=== PATIENT | male | born 1945 | race Two or more races ===

== ENCOUNTER 2020-03-23 18:13 | Inpatient (IN) | payer MEDICARE, MEDICAID ==
[~2020-03-23] VITALS: Ht 165.1 cm; Wt 75.0 kg
[2020-03-23 19:13] LABS: CHLORIDE 102 mEq/L (98-107)
[2020-03-23 19:17] LABS: BASOPHILS % 0.5 % (0.0-2.0); EOSINOPHILS % 0.7 % (0.0-5.0); HEMATOCRIT. 25.3 % (42.0-52.0); HEMOGLOBIN. 8.6 g/dL (14.0-18.0); LYMPHOCYTES % 11.6 % (20.0-50.0); MEAN CORPUSCULAR HEMOGLOBIN 31.2 pg (28.0-32.0); MEAN CORPUSCULAR VOLUME 91.3 fL (80.0-94.0); MONOCYTES % 8.4 % (2.0-8.0); NEUTROPHILS % 78.8 % (40.0-76.0); PLATELET 147 x1000/uL (130-400); RED BLOOD CELL COUNT 2.77 mill/uL (4.7-6.1); RED CELL DISTRIBUTION WIDTH 14.1 % (11.6-14.6)
[2020-03-23 19:39] LABS: INR 1.1; PROTHROMBIN TIME 11.4 sec (9.6-11.0)
[2020-03-23] MEDS ORDERED: HEPARIN 5000 UNITS/ML VIAL IV PRN ×2 (20:00)
[2020-03-23] MEDS ORDERED: HEPARIN 25,000 UNITS PREMIX 250 ML IV PRN (21:00)
[2020-03-23] MEDS ORDERED: HEPARIN 5000 UNITS/ML VIAL IV SCH (21:00)
[2020-03-23 23:00] VITALS: BP 136/60
[2020-03-24] VITALS (8 sets, daily range): BP systolic 100–167; BP diastolic 54–72
[2020-03-24] MEDS ORDERED: LORAZEPAM 2MG/ML CPJ IV PRN ×2 (00:30→16:30)
[2020-03-24] MEDS ORDERED: DEXTROSE 50% WATER 50ML SYRINGE IV PRN (00:30)
[2020-03-24] MEDS ORDERED: HEPARIN 25,000 UNITS PREMIX 250 ML IV SCH (01:15)
[2020-03-24] MEDS ORDERED: HEPARIN BOLUS PRN aPTT <30 IV (02:00)
[2020-03-24] MEDS ORDERED: HEPARIN 60 UNITS/KG BOLUS IV SCH (02:00)
[2020-03-24] MEDS: HEPARIN 25,000 UNITS PREMIX 250 ML IV SCH ×2 (02:39→20:46)
[2020-03-24] MEDS: ACETAMINOPHEN 325MG TABLET PO PRN (05:40)
[2020-03-24] MEDS: BLOOD SUGAR DIAGNOSTIC STRIP TEST SCH ×4 (06:38→20:27)
[2020-03-24] MEDS: NITROGLYCERIN OINT 1GM/INCH UDPKT TD SCH ×2 (06:44→14:06)
[2020-03-24] MEDS: INSULIN LISPRO 100 UNITS/ML SUBCUT SCH ×4 (06:47→20:27)
[2020-03-24] MEDS ORDERED: PIPERACILLIN/TAZOBACTAM 3.375 G in DEXT 5% WATER 100 ML IV SCH (09:00)
[2020-03-24] MEDS: METOPROLOL TARTRATE 50MG TABLET PO SCH ×2 (09:00→20:26)
[2020-03-24] MEDS: ASPIRIN 325MG EC TABLET PO SCH (09:13)
[2020-03-24] MEDS ORDERED: INSULIN GLARGINE UD 100 UNITS/ML SYR SUBCUT SCH ×2 (10:00)
[2020-03-24] MEDS ORDERED: CLONIDINE 0.1MG TABLET PO PRN (10:15)
[2020-03-24] MEDS: LOSARTAN POTASSIUM 25 MG TABLET PO SCH (10:15)
[2020-03-24] MEDS ORDERED: VANCOMYCIN 1250MG in DEXTROSE 5% WATER 250ML IV SCH (11:00)
[2020-03-24] MEDS: PIPERACILLIN/TAZOBACTAM 2.25 G in DEXTROSE 5% WATER 50 ML IV SCH (11:53)
[2020-03-24 12:02] LABS: HEMATOCRIT 24.9 % (42.0-52.0); HEMOGLOBIN 8.4 g/dL (14.0-18.0); MEAN CORPUSCULAR HEMOGLOBIN 30.8 pg (28.0-32.0); MEAN CORPUSCULAR VOLUME 91.3 fL (80.0-94.0); PLATELET 132 x1000/uL (130-400); RED BLOOD CELL COUNT 2.73 mill/uL (4.7-6.1)
[2020-03-24] MEDS ORDERED: DIPHENHYDRAMINE 50MG/ML VIAL IV PRN (12:45)
[2020-03-24] MEDS ORDERED: ONDANSETRON HCL 4MG/2ML INJ IV PRN (12:45)
[2020-03-24] MEDS ORDERED: ALBUTEROL 6.7GM HFA INHALER ORI PRN (12:45)
[2020-03-24 14:01] LABS: BG BASE EXCESS 4.2 mmol/L (-2.0-2.0); BG CARBOXYHEMOGLOBIN 0.2 % (0.5-1.5); BG DEOXYHEMOGLOBIN 2.8 % (0.0-5.0); BG FRACTION INSPIRED OXYGEN 21; BG HCO3 ACT 28.7 mmol/L (22.0-26.0); BG METHEMOGLOBIN 0.1 % (0.0-1.5); BG OXYGEN SATURATION 97.2 % (92.0-98.5); BG OXYHEMOGLOBIN 96.9 % (94.0-97.0); BG PCO2 43.4 mmHg (35.0-45.0); BG PH 7.439 (7.350-7.450); BG PO2 93.6 mmHg (75.0-100.0); BG SAMPLE SITE RIGHT BRACHIAL; BG TOTAL HEMOGLOBIN 8.9 g/dL (12.0-18.0); BG VENT MODE ROOM AIR
[2020-03-24] MEDS ORDERED: ISOS30TA6 PO (16:19)
[2020-03-24] MEDS ORDERED: CALC0.002 PO (16:19)
[2020-03-24] MEDS ORDERED: CARV25TA47 PO (16:19)
[2020-03-24] MEDS ORDERED: ATOR-2 PO (16:19)
[2020-03-24] MEDS ORDERED: CLOP75TA33 PO (16:19)
[2020-03-24] MEDS ORDERED: FURO40TA5 PO (16:19)
[2020-03-24] MEDS ORDERED: HYDR-4134 PO (16:19)
[2020-03-24] MEDS ORDERED: ASPI-1158 PO (16:19)
[2020-03-24 19:45] LABS: CLARITY URINE CLOUDY (CLEAR); COLOR URINE YELLOW (YELLOW); KETONES URINE NEGATIVE (NEGATIVE); LEUKOCYTE ESTERASE URINE 2+ (NEGATIVE); NITRITE URINE NEGATIVE (NEGATIVE); OCCULT BLOOD URINE 1+ (NEGATIVE); PH URINE 6.5 (4.5-8.0); PROTEIN URINE 3+ (NEGATIVE); SPECIFIC GRAVITY URINE 1.016 (1.005-1.030)
[2020-03-24 20:13] LABS: *AMPHETAMINES SCREEN URINE NEGATIVE (NEGATIVE); *BARBITURATES SCREEN URINE NEGATIVE (NEGATIVE); *BENZODIAZEPINES SCREEN URINE NEGATIVE (NEGATIVE); *COCAINE SCREEN URINE NEGATIVE (NEGATIVE); METHADONE URINE SCREEN NEGATIVE (NEGATIVE); OPIATES URINE SCREEN NEGATIVE (NEGATIVE)
[2020-03-24 20:14] LABS: CANNABINOID URINE SCREEN NEGATIVE (NEGATIVE); PHENCYCLIDINE URINE SCREEN NEGATIVE (NEGATIVE)
[2020-03-24] MEDS: FAMOTIDINE 20MG TABLET PO SCH (20:26)
[2020-03-24] MEDS: ATORVASTATIN CALCIUM 40MG TABLET PO SCH (20:27)
[2020-03-24] MEDS: EPOETIN ALFA-EPBX 4,000 UNIT/ML VIAL SUBCUT SCH (20:28)
[2020-03-24] MEDS: HEPARIN BOLUS PRN aPTT 30-44 IV (20:30)
[2020-03-25] MEDS: PIPERACILLIN/TAZOBACTAM 2.25 G in DEXTROSE 5% WATER 50 ML IV SCH ×3 (02:15→23:39)
[2020-03-25] MEDS: NITROGLYCERIN OINT 1GM/INCH UDPKT TD SCH ×4 (02:15→21:19)
[2020-03-25 02:55] LABS: CHLORIDE 103 mEq/L (98-107)
[2020-03-25 03:02] LABS: LDL CHOLESTEROL 63 mg/dL (5-100)
[2020-03-25 03:03] LABS: HDL CHOLESTEROL 39 mg/dL (40-59); TOTAL IRON BINDING CAPACITY 174 ug/dL (250-450)
[2020-03-25 03:05] LABS: CREATINE KINASE 190 IU/L (39-308); CREATINE KINASE MB FRACTION 6.5 ng/mL (0.5-3.6)
[2020-03-25 03:07] LABS: BASOPHILS % 0.7 % (0.0-2.0); EOSINOPHILS % 1.5 % (0.0-5.0); HEMATOCRIT. 23.6 % (42.0-52.0); LYMPHOCYTES % 16.9 % (20.0-50.0); MEAN CORPUSCULAR HEMOGLOBIN 30.7 pg (28.0-32.0); MEAN CORPUSCULAR VOLUME 90.4 fL (80.0-94.0); MEAN PLATELET VOLUME 10.3 fl (7.4-10.4); MONOCYTES % 9.9 % (2.0-8.0); PLATELET 130 x1000/uL (130-400); RED BLOOD CELL COUNT 2.61 mill/uL (4.7-6.1); RED CELL DISTRIBUTION WIDTH 13.9 % (11.6-14.6)
[2020-03-25 04:00] VITALS: BP 128/66
[2020-03-25 04:01] LABS: HEPATITIS B SURFACE ANTIGEN NEGATIVE
[2020-03-25 04:31] LABS: HEPATITIS A AB IGM NEGATIVE (NEGATIVE)
[2020-03-25] MEDS: BLOOD SUGAR DIAGNOSTIC STRIP TEST SCH ×4 (06:33→21:30)
[2020-03-25] MEDS: INSULIN LISPRO 100 UNITS/ML SUBCUT SCH ×4 (06:45→21:00)
[2020-03-25 08:00] VITALS: BP 142/65
[2020-03-25] MEDS: ASPIRIN 325MG EC TABLET PO SCH (08:52)
[2020-03-25] MEDS: LOSARTAN POTASSIUM 25 MG TABLET PO SCH (08:53)
[2020-03-25] MEDS: METOPROLOL TARTRATE 50MG TABLET PO SCH ×2 (08:53→21:20)
[2020-03-25] MEDS ORDERED: ALBUTEROL (0.083%) 2.5MG/3ML NEB HHN PRN (10:45)
[2020-03-25 12:00] VITALS: BP 128/74
[2020-03-25] MEDS: CLOPIDOGREL 75MG TABLET PO SCH (12:02)
[2020-03-25] MEDS ORDERED: VANCOMYCIN 1 G PREMIX 200 ML IV NR (15:00)
[2020-03-25 16:00] VITALS: BP 128/59
[2020-03-25] MEDS: HEPARIN BOLUS PRN aPTT 30-44 IV (19:45)
[2020-03-25 20:00] VITALS: BP 135/71
[2020-03-25] MEDS: FAMOTIDINE 20MG TABLET PO SCH (21:19)
[2020-03-25] MEDS: ATORVASTATIN CALCIUM 40MG TABLET PO SCH (21:19)
[2020-03-25 21:22] LABS: HEMATOCRIT 23.7 % (42.0-52.0); HEMOGLOBIN 8.1 g/dL (14.0-18.0)
[2020-03-26] VITALS (21 sets, daily range): BP systolic 123–152; BP diastolic 64–85
[2020-03-26 02:30] LABS: CHLORIDE 104 mEq/L (98-107)
[2020-03-26 02:32] LABS: EOSINOPHILS % 5.2 % (0.0-5.0); HEMATOCRIT. 23.4 % (42.0-52.0); HEMOGLOBIN. 7.9 g/dL (14.0-18.0); LYMPHOCYTES % 24.2 % (20.0-50.0); MEAN CORPUSCULAR HEMOGLOBIN 30.7 pg (28.0-32.0); MEAN CORPUSCULAR VOLUME 90.2 fL (80.0-94.0); MEAN PLATELET VOLUME 9.8 fl (7.4-10.4); MONOCYTES % 14.5 % (2.0-8.0); NEUTROPHILS % 55.1 % (40.0-76.0); PLATELET 130 x1000/uL (130-400); RED BLOOD CELL COUNT 2.59 mill/uL (4.7-6.1); RED CELL DISTRIBUTION WIDTH 14.1 % (11.6-14.6)
[2020-03-26] MEDS: INSULIN LISPRO 100 UNITS/ML SUBCUT SCH ×4 (06:29→21:00)
[2020-03-26] MEDS: BLOOD SUGAR DIAGNOSTIC STRIP TEST SCH ×4 (06:29→21:40)
[2020-03-26] MEDS: NITROGLYCERIN OINT 1GM/INCH UDPKT TD SCH ×3 (06:29→21:40)
[2020-03-26 09:30] LABS: HEMATOCRIT. 24.4 % (42.0-52.0); HEMOGLOBIN. 8.3 g/dL (14.0-18.0); MEAN CORPUSCULAR HEMOGLOBIN 30.8 pg (28.0-32.0); MEAN CORPUSCULAR VOLUME 90.9 fL (80.0-94.0); MEAN PLATELET VOLUME 9.7 fl (7.4-10.4); PLATELET 146 x1000/uL (130-400); RED BLOOD CELL COUNT 2.69 mill/uL (4.7-6.1)
[2020-03-26] MEDS: CLOPIDOGREL 75MG TABLET PO SCH (09:42)
[2020-03-26] MEDS: LOSARTAN POTASSIUM 25 MG TABLET PO SCH (09:42)
[2020-03-26] MEDS: METOPROLOL TARTRATE 50MG TABLET PO SCH (09:42)
[2020-03-26] MEDS: ASPIRIN 81MG EC TABLET PO SCH ×2 (09:43→17:27)
[2020-03-26] MEDS ORDERED: MIDAZOLAM HCL 2 MG/2 ML VIAL ONE (11:36)
[2020-03-26] MEDS ORDERED: IODIXANOL 320MG/ML 100 ML BOTTLE IV ONE (11:37)
[2020-03-26] MEDS ORDERED: FENTANYL CITRATE/PF 50MCG/ML 2ML VIAL ONE (11:37)
[2020-03-26] MEDS ORDERED: LIDOCAINE HCL 1% 20ML VIAL (Pyxis) INJ ONE (11:37)
[2020-03-26] MEDS ORDERED: HEPARIN SODIUM 1,000 UNIT/1ML VIAL IV ONE (12:00)
[2020-03-26] MEDS ORDERED: ASPIRIN/SOD BICARB/CITRIC ACID 324MG TAB EFF ONE (12:01)
[2020-03-26] MEDS ORDERED: ATROPINE SULFATE 0.1MG/ML 10ML DISP.SYRIN ONE (12:22)
[2020-03-26] MEDS ORDERED: ONDANSETRON HCL 4MG/2ML INJ IV PRN (12:45)
[2020-03-26] MEDS ORDERED: ACETAMINOPHEN 325MG TABLET PO PRN ×2 (12:45→13:00)
[2020-03-26] MEDS ORDERED: ATROPINE SULFATE 1MG/10ML SYR IV PRN (12:45)
[2020-03-26] MEDS ORDERED: MORPHINE SULFATE 2 MG/ML CPJ (NOT FOR IM USE) IV PRN (12:45)
[2020-03-26] MEDS ORDERED: EPOETIN ALFA 10000UNITS/ML VIAL SUBCUT ONE (13:00)
[2020-03-26] MEDS ORDERED: EPOETIN ALFA 10000UNITS/ML VIAL SUBCUT SCH (14:00)
[2020-03-26 14:42] LABS: PLATELET ESTIMATE NORMAL
[2020-03-26] MEDS: PIPERACILLIN/TAZOBACTAM 2.25 G in DEXTROSE 5% WATER 50 ML IV SCH (14:55)
[2020-03-26] MEDS ORDERED: LEVOFLOXACIN 500MG PREMIX 100 ML IV NR (18:00)
[2020-03-26 18:53] LABS: CLARITY URINE CLEAR (CLEAR); COLOR URINE YELLOW (YELLOW); KETONES URINE NEGATIVE (NEGATIVE); LEUKOCYTE ESTERASE URINE NEGATIVE (NEGATIVE); NITRITE URINE NEGATIVE (NEGATIVE); OCCULT BLOOD URINE NEGATIVE (NEGATIVE); PH URINE 7.5 (4.5-8.0); PROTEIN URINE 2+ (NEGATIVE); SPECIFIC GRAVITY URINE 1.017 (1.005-1.030); UROBILINOGEN URINE 0.2 E.U./dL (0.2-1.0)
[2020-03-26] MEDS ORDERED: CHLORHEXIDINE GLUCONATE 4% EXTERNAL USE TOP SCH (21:00)
[2020-03-26] MEDS: METOPROLOL TARTRATE 25MG TABLET PO SCH (21:00)
[2020-03-26] MEDS ORDERED: ASCORBIC ACID 500 MG TABLET PO SCH (21:00)
[2020-03-26] MEDS ORDERED: BISACODYL 10MG SUPP PR PRN (21:00)
[2020-03-26] MEDS ORDERED: DOCUSATE SODIUM 100MG CAPSULE PO SCH (21:00)
[2020-03-26] MEDS ORDERED: DIPHENHYDRAMINE 25MG CAPSULE PO PRN (21:00)
[2020-03-26] MEDS: ATORVASTATIN CALCIUM 40MG TABLET PO SCH (21:36)
[2020-03-26] MEDS: FAMOTIDINE 20MG TABLET PO SCH (21:37)
[2020-03-26] MEDS: ALLOPURINOL 300 MG TABLET PO SCH (21:37)
[2020-03-27] VITALS (44 sets, daily range): BP systolic 0–180; BP diastolic 0–98
[2020-03-27] MEDS: ALLOPURINOL 300 MG TABLET PO SCH (04:35)
[2020-03-27] MEDS: IPRATROPIUM/ALBUTEROL 0.5-3(2.5)MG/3ML NEB HHN SCH ×2 (04:38→23:50)
[2020-03-27] MEDS ORDERED: CHLORHEXIDINE GLUCONATE 4% EXTERNAL USE TOP SCH (05:00)
[2020-03-27] MEDS: BLOOD SUGAR DIAGNOSTIC STRIP TEST SCH ×9 (06:01→23:47)
[2020-03-27] MEDS: INSULIN LISPRO 100 UNITS/ML SUBCUT SCH (06:01)
[2020-03-27 06:04] LABS: HEMATOCRIT. 37.9 % (42.0-52.0); HEMOGLOBIN. 12.9 g/dL (14.0-18.0); MEAN CORPUSCULAR HEMOGLOBIN 29.8 pg (28.0-32.0); MEAN CORPUSCULAR VOLUME 87.5 fL (80.0-94.0); MEAN PLATELET VOLUME 9.4 fl (7.4-10.4); PLATELET 147 x1000/uL (130-400); RED BLOOD CELL COUNT 4.33 mill/uL (4.7-6.1); RED CELL DISTRIBUTION WIDTH 14.4 % (11.6-14.6)
[2020-03-27] MEDS: NITROGLYCERIN OINT 1GM/INCH UDPKT TD SCH (06:07)
[2020-03-27] MEDS ORDERED: THROMBIN (BOVINE) 5000 UNITS/VIAL TOP ONE (07:21)
[2020-03-27] MEDS ORDERED: SODIUM CHLORIDE 0.9% INJ 10ML FLUSH ONE (07:21)
[2020-03-27] MEDS ORDERED: BACITRACIN 50,000 UNITS/VIAL ONE (07:22)
[2020-03-27] MEDS ORDERED: SODIUM CHLORIDE 0.9% IRRIG SOL 8,000 ML IR ONE (07:22)
[2020-03-27] MEDS ORDERED: SODIUM CHLORIDE 0.9% 4,000 ML ONE (07:22)
[2020-03-27 07:36] LABS: PLATELET ESTIMATE NORMAL
[2020-03-27] MEDS ORDERED: NOREPINEPHRINE 8 MG in DEXT 5% WATER 242 ML IV ONE (08:00)
[2020-03-27] MEDS ORDERED: INSULIN REGULAR (DRIP) 100 UNITS in SODIUM CHLORIDE 0.9% 99 ML IV ONE (08:00)
[2020-03-27] MEDS ORDERED: EPINEPHRINE 5 MG in SODIUM CHLORIDE 0.9% 250 ML IV PRN (08:00)
[2020-03-27] MEDS: ASPIRIN 81MG EC TABLET PO SCH ×2 (08:14→16:50)
[2020-03-27] MEDS: METOPROLOL TARTRATE 25MG TABLET PO SCH ×2 (08:14→21:00)
[2020-03-27] MEDS ORDERED: PAPAVERINE HCL 180MG in SODIUM CHLORIDE 0.9% 24ML IV ONE (08:15)
[2020-03-27] MEDS ORDERED: DEL NIDO ELECTROLYTE-S(PH 7.4) 1,000 ML IV ONE ×2 (08:15)
[2020-03-27] MEDS ORDERED: CEFAZOLIN 2000MG in DEXTROSE 5% WATER 100ML IV SCH (09:00)
[2020-03-27] MEDS ORDERED: SKIN ADHESIVE 0.7 GM EA TOP ONE ×2 (09:57→15:02)
[2020-03-27] MEDS ORDERED: POTASSIUM CHLORIDE 10MEQ IN WATER 50ML PREMIX IV ONE (10:00)
[2020-03-27] MEDS ORDERED: DOPAMINE 400MG/250ML PREMIX 250 ML IV ONE (10:06)
[2020-03-27] MEDS ORDERED: NICARDIPINE 40MG/200ML PREMIX 200 ML IV ONE (10:06)
[2020-03-27] MEDS ORDERED: HEPARIN 1000 UNITS/ML 10ML ONE (10:53)
[2020-03-27] MEDS ORDERED: HEPARIN 10,000 UNITS/ML VIAL ONE (11:00)
[2020-03-27] MEDS ORDERED: MAGNESIUM 2 G PREMIX 100 ML IV ONE (14:53)
[2020-03-27] MEDS ORDERED: MAGNESIUM SULFATE 3 GM in DEXT 5% WATER 100 ML IV PRN (15:00)
[2020-03-27] MEDS ORDERED: ACETAMINOPHEN 325MG TABLET PO PRN (15:00)
[2020-03-27] MEDS ORDERED: MAGNESIUM 1 G PREMIX 100 ML IV PRN (15:00)
[2020-03-27] MEDS ORDERED: MAGNESIUM 2 G PREMIX 50 ML IV PRN (15:00)
[2020-03-27] MEDS ORDERED: CALCIUM CHLORIDE 3,000 MG in DEXT 5% WATER 250 ML IV PRN (15:00)
[2020-03-27] MEDS ORDERED: OXYCODONE HCL/ACETAMINOPHEN 5/325MG TABLET PO PRN ×2 (15:00)
[2020-03-27] MEDS ORDERED: KETOROLAC 30MG/ML VIAL IV PRN (15:00)
[2020-03-27] MEDS ORDERED: DEXTROSE 50% WATER 50ML SYRINGE IV PRN ×2 (15:15)
[2020-03-27] MEDS ORDERED: KCL 10MEQ/50ML PREMIX 200 ML IV PRN (15:15)
[2020-03-27] MEDS ORDERED: KCL 10MEQ/50ML PREMIX 100 ML IV PRN (15:15)
[2020-03-27] MEDS ORDERED: KCL 10MEQ/50ML PREMIX 150 ML IV PRN (15:15)
[2020-03-27 15:55] LABS: BG BASE EXCESS -4.2 mmol/L (-2.0-2.0); BG CARBOXYHEMOGLOBIN 0.4 % (0.5-1.5); BG DEOXYHEMOGLOBIN 0.8 % (0.0-5.0); BG FRACTION INSPIRED OXYGEN 99.8; BG HCO3 ACT 22.4 mmol/L (22.0-26.0); BG METHEMOGLOBIN 0.3 % (0.0-1.5); BG OXYGEN SATURATION 99.2 % (92.0-98.5); BG OXYHEMOGLOBIN 98.5 % (94.0-97.0); BG PCO2 47.1 mmHg (35.0-45.0); BG PH 7.295 (7.350-7.450); BG PO2 200.8 mmHg (75.0-100.0); BG SAMPLE SITE ALINE; BG TOTAL HEMOGLOBIN 13.3 g/dL (12.0-18.0); BG VENT MODE MASK - NRB
[2020-03-27] MEDS: MAGNESIUM HYDROXIDE 400MG/5ML 30ML UDC PO SCH ×3 (16:00→23:09)
[2020-03-27] MEDS ORDERED: INSULIN REGULAR (DRIP) 100 UNITS in SODIUM CHLORIDE 0.9% 100 ML IV SCH (16:00)
[2020-03-27 16:12] LABS: BASOPHILS % 0.7 % (0.0-2.0); EOSINOPHILS % 0.8 % (0.0-5.0); HEMATOCRIT. 36.9 % (42.0-52.0); HEMOGLOBIN. 12.3 g/dL (14.0-18.0); LYMPHOCYTES % 11.4 % (20.0-50.0); MEAN CORPUSCULAR HEMOGLOBIN 29.5 pg (28.0-32.0); MEAN CORPUSCULAR VOLUME 88.2 fL (80.0-94.0); MEAN PLATELET VOLUME 9.6 fl (7.4-10.4); MONOCYTES % 2.5 % (2.0-8.0); NEUTROPHILS % 84.6 % (40.0-76.0); PLATELET 184 x1000/uL (130-400); RED BLOOD CELL COUNT 4.18 mill/uL (4.7-6.1); RED CELL DISTRIBUTION WIDTH 14.8 % (11.6-14.6)
[2020-03-27] MEDS: BACITRACIN 15GM TUBE TOP SCH (16:50)
[2020-03-27] MEDS: DOCUSATE SODIUM 100MG CAPSULE PO SCH (16:50)
[2020-03-27] MEDS: FAMOTIDINE 20MG/2ML VIAL IV SCH (16:55)
[2020-03-27] MEDS ORDERED: DEXT 5%/0.45% NACL 1000ML 1,000 ML IV SCH ×2 (17:00)
[2020-03-27] MEDS: DEXT 5%/0.45% NACL 1000ML 1,000 ML IV SCH (17:10)
[2020-03-27] MEDS ORDERED: ALBUMIN HUMAN 25GM/100ML (25%) IV NR (18:00)
[2020-03-27] MEDS: EPINEPHRINE 5 MG in DEXT 5% WATER 245 ML IV SCH ×3 (18:10→23:41)
[2020-03-27] MEDS: DOPAMINE 400MG/250ML PREMIX 250 ML IV SCH ×2 (18:21→23:41)
[2020-03-27] MEDS ORDERED: PROTAMINE SULFATE 10MG/ML VIAL 5ML IV NR (19:00)
[2020-03-27] MEDS ORDERED: PROTAMINE SULFATE 10MG/ML VIAL 25ML IV NR (19:00)
[2020-03-27 20:21] LABS: HEMATOCRIT. 27.1 % (42.0-52.0); HEMOGLOBIN. 9.2 g/dL (14.0-18.0); MEAN CORPUSCULAR VOLUME 88.1 fL (80.0-94.0); MEAN PLATELET VOLUME 9.3 fl (7.4-10.4); PLATELET 147 x1000/uL (130-400); RED BLOOD CELL COUNT 3.08 mill/uL (4.7-6.1); RED CELL DISTRIBUTION WIDTH 14.6 % (11.6-14.6)
[2020-03-27 20:29] LABS: CHLORIDE 104 mEq/L (98-107)
[2020-03-27 20:49] LABS: PLATELET ESTIMATE NORMAL
[2020-03-27] MEDS: ATORVASTATIN CALCIUM 40MG TABLET PO SCH (22:14)
[2020-03-27] MEDS: ONDANSETRON HCL 4MG/2ML INJ IV PRN (23:04)
[2020-03-27] MEDS: EPOETIN ALFA-EPBX 4,000 UNIT/ML VIAL SUBCUT SCH (23:09)
[2020-03-28] VITALS (94 sets, daily range): BP systolic 31–278; BP diastolic 29–150
[2020-03-28] MEDS: BLOOD SUGAR DIAGNOSTIC STRIP TEST SCH ×21 (00:22→22:17)
[2020-03-28 00:29] LABS: CHLORIDE 103 mEq/L (98-107)
[2020-03-28 01:46] LABS: BG BASE EXCESS 1.6 mmol/L (-2.0-2.0); BG CARBOXYHEMOGLOBIN 0.3 % (0.5-1.5); BG FRACTION INSPIRED OXYGEN 44; BG HCO3 ACT 26.1 mmol/L (22.0-26.0); BG METHEMOGLOBIN 0.5 % (0.0-1.5); BG OXYHEMOGLOBIN 98.2 % (94.0-97.0); BG PCO2 40.4 mmHg (35.0-45.0); BG PH 7.428 (7.350-7.450); BG PO2 211.5 mmHg (75.0-100.0); BG SAMPLE SITE ALINE; BG TOTAL HEMOGLOBIN 7.7 g/dL (12.0-18.0); BG VENT MODE NASAL CANNULA
[2020-03-28] MEDS: MORPHINE SULFATE 2 MG/ML CPJ (NOT FOR IM USE) IV PRN ×2 (02:50→03:20)
[2020-03-28] MEDS: ONDANSETRON HCL 4MG/2ML INJ IV PRN ×2 (02:53→09:59)
[2020-03-28] MEDS: MAGNESIUM HYDROXIDE 400MG/5ML 30ML UDC PO SCH ×4 (03:22→17:30)
[2020-03-28 06:33] LABS: PHOSPHORUS 2.9 mg/dL (2.5-4.9)
[2020-03-28 06:45] LABS: BASOPHILS % 0.1 % (0.0-2.0); LYMPHOCYTES % 7.5 % (20.0-50.0); MEAN CORPUSCULAR HEMOGLOBIN 30.5 pg (28.0-32.0); MEAN CORPUSCULAR VOLUME 88.4 fL (80.0-94.0); MEAN PLATELET VOLUME 9.1 fl (7.4-10.4); MONOCYTES % 7.4 % (2.0-8.0); PLATELET 86 x1000/uL (130-400); RED BLOOD CELL COUNT 1.48 mill/uL (4.7-6.1); RED CELL DISTRIBUTION WIDTH 14.4 % (11.6-14.6)
[2020-03-28 06:49] LABS: HEMATOCRIT. 13.1 % (42.0-52.0)
[2020-03-28 06:50] LABS: HEMOGLOBIN. 4.5 g/dL (14.0-18.0)
[2020-03-28] MEDS ORDERED: ALBUMIN HUMAN 25GM/100ML (25%) IV SCH (07:00)
[2020-03-28] MEDS: METOPROLOL TARTRATE 25MG TABLET PO SCH ×2 (09:00→21:31)
[2020-03-28] MEDS ORDERED: CEFAZOLIN 1000MG PREMIX 50 ML IV NR (09:00)
[2020-03-28] MEDS: IPRATROPIUM/ALBUTEROL 0.5-3(2.5)MG/3ML NEB HHN SCH ×4 (09:11→20:20)
[2020-03-28] MEDS: FAMOTIDINE 20MG/2ML VIAL IV SCH (09:59)
[2020-03-28 11:29] LABS: BG BASE EXCESS -1.2 mmol/L (-2.0-2.0); BG CARBOXYHEMOGLOBIN 0.3 % (0.5-1.5); BG DEOXYHEMOGLOBIN 2.4 % (0.0-5.0); BG FRACTION INSPIRED OXYGEN 28; BG HCO3 ACT 23.3 mmol/L (22.0-26.0); BG METHEMOGLOBIN 0.8 % (0.0-1.5); BG OXYGEN SATURATION 97.6 % (92.0-98.5); BG OXYHEMOGLOBIN 96.5 % (94.0-97.0); BG PCO2 37.3 mmHg (35.0-45.0); BG PH 7.413 (7.350-7.450); BG PO2 114.8 mmHg (75.0-100.0); BG SAMPLE SITE ALINE; BG TOTAL HEMOGLOBIN 7.4 g/dL (12.0-18.0); BG VENT MODE NASAL CANNULA
[2020-03-28 11:29] LABS: TOTAL IRON BINDING CAPACITY 104 ug/dL (250-450)
[2020-03-28] MEDS: DOCUSATE SODIUM 100MG CAPSULE PO SCH ×2 (12:05→17:30)
[2020-03-28] MEDS: BACITRACIN 15GM TUBE TOP SCH ×2 (12:07→17:36)
[2020-03-28] MEDS: CLOPIDOGREL 75MG TABLET PO SCH (12:15)
[2020-03-28] MEDS: ASPIRIN 81MG EC TABLET PO SCH ×2 (12:15→21:33)
[2020-03-28] MEDS: DEXT 5%/0.45% NACL 1000ML 1,000 ML IV SCH (17:00)
[2020-03-28] MEDS: LEVOFLOXACIN 250MG PREMIX 50 ML IV SCH ×2 (17:30→17:35)
[2020-03-28 18:11] LABS: HEMATOCRIT 29.4 % (42.0-52.0); HEMOGLOBIN 10.2 g/dL (14.0-18.0); MEAN CORPUSCULAR HEMOGLOBIN 29.9 pg (28.0-32.0); MEAN CORPUSCULAR VOLUME 86.3 fL (80.0-94.0); PLATELET 93 x1000/uL (130-400); RED CELL DISTRIBUTION WIDTH 13.9 % (11.6-14.6)
[2020-03-28] MEDS: IRON SUCROSE COMPLEX 100 MG/5 ML ML IV SCH (18:25)
[2020-03-28] MEDS: ATORVASTATIN CALCIUM 40MG TABLET PO SCH (21:30)
[2020-03-28] MEDS ORDERED: DEXTROSE 50% WATER 50ML SYRINGE IV PRN (22:00)
[2020-03-28] MEDS ORDERED: BLOOD SUGAR DIAGNOSTIC STRIP TEST SCH (22:00)
[2020-03-28] MEDS: INSULIN LISPRO 100 UNITS/ML SUBCUT SCH (22:00)
[2020-03-28] MEDS: DOPAMINE 400MG/250ML PREMIX 250 ML IV SCH (22:11)
[2020-03-29] VITALS (39 sets, daily range): BP systolic 60–168; BP diastolic 45–117
[2020-03-29] MEDS: BLOOD SUGAR DIAGNOSTIC STRIP TEST SCH ×6 (00:14→20:40)
[2020-03-29] MEDS: IPRATROPIUM/ALBUTEROL 0.5-3(2.5)MG/3ML NEB HHN SCH ×6 (00:38→19:56)
[2020-03-29] MEDS: INSULIN LISPRO 100 UNITS/ML SUBCUT SCH ×6 (04:00→20:44)
[2020-03-29 05:45] LABS: BASOPHILS % 0.2 % (0.0-2.0); HEMATOCRIT. 29.6 % (42.0-52.0); HEMOGLOBIN. 10.1 g/dL (14.0-18.0); LYMPHOCYTES % 7.5 % (20.0-50.0); MEAN CORPUSCULAR HEMOGLOBIN 29.6 pg (28.0-32.0); MEAN CORPUSCULAR VOLUME 86.9 fL (80.0-94.0); MEAN PLATELET VOLUME 9.2 fl (7.4-10.4); MONOCYTES % 8.2 % (2.0-8.0); NEUTROPHILS % 84.1 % (40.0-76.0); PLATELET 107 x1000/uL (130-400); RED CELL DISTRIBUTION WIDTH 14.2 % (11.6-14.6)
[2020-03-29 05:55] LABS: PHOSPHORUS 3.2 mg/dL (2.5-4.9)
[2020-03-29] MEDS: IRON SUCROSE COMPLEX 100 MG/5 ML ML IV SCH (09:12)
[2020-03-29] MEDS: FAMOTIDINE 20MG/2ML VIAL IV SCH (09:12)
[2020-03-29] MEDS: ASPIRIN 81MG EC TABLET PO SCH ×2 (09:13→17:54)
[2020-03-29] MEDS: DOCUSATE SODIUM 100MG CAPSULE PO SCH ×2 (09:13→17:53)
[2020-03-29] MEDS: CLOPIDOGREL 75MG TABLET PO SCH (09:13)
[2020-03-29] MEDS: METOPROLOL TARTRATE 25MG TABLET PO SCH ×2 (09:13→20:39)
[2020-03-29] MEDS: BACITRACIN 15GM TUBE TOP SCH ×2 (09:14→17:57)
[2020-03-29] MEDS: ACETAMINOPHEN 325MG TABLET PO PRN (17:54)
[2020-03-29] MEDS: DEXT 5%/0.45% NACL 1000ML 1,000 ML IV SCH (19:42)
[2020-03-29] MEDS: ATORVASTATIN CALCIUM 40MG TABLET PO SCH (20:39)
[2020-03-30] VITALS (14 sets, daily range): BP systolic 113–152; BP diastolic 61–93
[2020-03-30] MEDS: IPRATROPIUM/ALBUTEROL 0.5-3(2.5)MG/3ML NEB HHN SCH ×6 (01:00→21:04)
[2020-03-30] MEDS: BLOOD SUGAR DIAGNOSTIC STRIP TEST SCH ×6 (01:20→22:38)
[2020-03-30] MEDS: INSULIN LISPRO 100 UNITS/ML SUBCUT SCH ×6 (01:25→22:38)
[2020-03-30 07:06] LABS: BASOPHILS % 0.3 % (0.0-2.0); EOSINOPHILS % 0.5 % (0.0-5.0); HEMATOCRIT. 29.3 % (42.0-52.0); LYMPHOCYTES % 10.7 % (20.0-50.0); MEAN CORPUSCULAR HEMOGLOBIN 29.8 pg (28.0-32.0); MEAN CORPUSCULAR VOLUME 87.6 fL (80.0-94.0); MEAN PLATELET VOLUME 9.2 fl (7.4-10.4); MONOCYTES % 7.9 % (2.0-8.0); NEUTROPHILS % 80.6 % (40.0-76.0); PLATELET 128 x1000/uL (130-400); RED BLOOD CELL COUNT 3.34 mill/uL (4.7-6.1); RED CELL DISTRIBUTION WIDTH 14.1 % (11.6-14.6)
[2020-03-30 07:48] LABS: PHOSPHORUS 2.8 mg/dL (2.5-4.9)
[2020-03-30] MEDS: ASPIRIN 81MG EC TABLET PO SCH ×2 (10:07→17:39)
[2020-03-30] MEDS: FAMOTIDINE 20MG/2ML VIAL IV SCH (10:07)
[2020-03-30] MEDS: DOCUSATE SODIUM 100MG CAPSULE PO SCH ×2 (10:07→17:39)
[2020-03-30] MEDS: CLOPIDOGREL 75MG TABLET PO SCH (10:08)
[2020-03-30] MEDS: METOPROLOL TARTRATE 25MG TABLET PO SCH ×2 (10:08→23:38)
[2020-03-30] MEDS: BACITRACIN 15GM TUBE TOP SCH ×2 (10:10→17:39)
[2020-03-30] MEDS ORDERED: IRON SUCROSE COMPLEX 100 MG/5 ML ML IV SCH (11:00)
[2020-03-30] MEDS: IRON SUCROSE COMPLEX 100 MG/5 ML ML IV SCH (11:54)
[2020-03-30] MEDS: LEVOFLOXACIN 250MG PREMIX 50 ML IV SCH (17:40)
[2020-03-30] MEDS: ATORVASTATIN CALCIUM 40MG TABLET PO SCH (23:37)
[2020-03-31] VITALS (12 sets, daily range): BP systolic 127–156; BP diastolic 73–91
[2020-03-31] MEDS: IPRATROPIUM/ALBUTEROL 0.5-3(2.5)MG/3ML NEB HHN SCH ×6 (00:44→21:02)
[2020-03-31] MEDS: BLOOD SUGAR DIAGNOSTIC STRIP TEST SCH ×4 (05:31→21:08)
[2020-03-31] MEDS: INSULIN LISPRO 100 UNITS/ML SUBCUT SCH ×4 (06:50→21:00)
[2020-03-31 07:00] LABS: HEMATOCRIT 30.1 % (42.0-52.0); HEMOGLOBIN 10.3 g/dL (14.0-18.0); MEAN CORPUSCULAR HEMOGLOBIN 30.1 pg (28.0-32.0); MEAN CORPUSCULAR VOLUME 88.3 fL (80.0-94.0); PLATELET 160 x1000/uL (130-400); RED BLOOD CELL COUNT 3.41 mill/uL (4.7-6.1)
[2020-03-31] MEDS ORDERED: MINERAL OIL 30ML BOTTLE PO SCH (08:00)
[2020-03-31] MEDS ORDERED: BISACODYL 5MG TABLET PO SCH (08:00)
[2020-03-31] MEDS: DOCUSATE SODIUM 100MG CAPSULE PO SCH ×2 (09:01→17:54)
[2020-03-31] MEDS: METOPROLOL TARTRATE 25MG TABLET PO SCH ×2 (09:02→21:04)
[2020-03-31] MEDS: CLOPIDOGREL 75MG TABLET PO SCH (09:02)
[2020-03-31] MEDS: ASPIRIN 81MG EC TABLET PO SCH ×2 (09:02→17:54)
[2020-03-31] MEDS: FAMOTIDINE 20MG/2ML VIAL IV SCH (09:02)
[2020-03-31] MEDS: BACITRACIN 15GM TUBE TOP SCH ×2 (09:13→17:50)
[2020-03-31] MEDS: ATORVASTATIN CALCIUM 40MG TABLET PO SCH (21:03)
[2020-04-01] VITALS (11 sets, daily range): BP systolic 135–171; BP diastolic 73–101
[2020-04-01] MEDS: IPRATROPIUM/ALBUTEROL 0.5-3(2.5)MG/3ML NEB HHN SCH ×4 (00:45→14:00)
[2020-04-01] MEDS: BLOOD SUGAR DIAGNOSTIC STRIP TEST SCH ×3 (05:45→16:39)
[2020-04-01] MEDS: INSULIN LISPRO 100 UNITS/ML SUBCUT SCH ×3 (06:50→16:42)
[2020-04-01 07:01] LABS: HEMATOCRIT. 33.4 % (42.0-52.0); HEMOGLOBIN. 11.5 g/dL (14.0-18.0); MEAN CORPUSCULAR HEMOGLOBIN 30.9 pg (28.0-32.0); MEAN CORPUSCULAR VOLUME 89.5 fL (80.0-94.0); MEAN PLATELET VOLUME 8.5 fl (7.4-10.4); PLATELET 208 x1000/uL (130-400); RED BLOOD CELL COUNT 3.73 mill/uL (4.7-6.1); RED CELL DISTRIBUTION WIDTH 14.1 % (11.6-14.6)
[2020-04-01] MEDS: ASPIRIN 81MG EC TABLET PO SCH ×2 (09:17→17:17)
[2020-04-01] MEDS: BACITRACIN 15GM TUBE TOP SCH ×2 (09:17→17:17)
[2020-04-01] MEDS: FAMOTIDINE 20MG/2ML VIAL IV SCH (09:17)
[2020-04-01] MEDS: DOCUSATE SODIUM 100MG CAPSULE PO SCH ×2 (09:17→17:17)
[2020-04-01] MEDS: METOPROLOL TARTRATE 25MG TABLET PO SCH (09:17)
[2020-04-01] MEDS: CLOPIDOGREL 75MG TABLET PO SCH (09:17)
[2020-04-01] MEDS ORDERED: MAGNESIUM OXIDE 400MG TABLET PO SCH (10:30)
[2020-04-01] MEDS ORDERED: MINERAL OIL 30ML BOTTLE PO SCH (10:30)
[2020-04-01 11:10] LABS: NUCLEATED RED BLOOD CELLS 1 /100 WBC
[2020-04-01 11:11] LABS: PLATELET ESTIMATE NORMAL
[2020-04-01] MEDS ORDERED: AMLODIPINE 2.5MG TABLET PO SCH (21:00)
== END 2020-04-01 18:49 | disposition home or self-care (01) | DRG 853 ==
LOC: ER 18:13 → 7EST 20:22 → EDBD 20:22 → EDBEDREQTM 20:46 → EDBEDREQ 20:46 → EDBEDREQSVC 20:46 → ENRESERV 21:41 → 7EST 03-24 01:14 → 8WST 03-25 10:35 → 3WST 03-26 13:40 → CVICU 03-27 11:22 → 3WST 03-29 16:18
PROVIDERS: ADMIT Internal Medicine; ATTEND Internal Medicine
PROC: 5A1D70Z Performance of Urinary Filtration, Intermittent, Less than 6 Hours Per Day (ICD-10-PCS; 2020-03-25)
PROC: 4A023N7 Measurement of Cardiac Sampling and Pressure, Left Heart, Percutaneous Approach (ICD-10-PCS; principal; 2020-03-26)
PROC: B2111ZZ Fluoroscopy of Multiple Coronary Arteries using Low Osmolar Contrast (ICD-10-PCS; 2020-03-26)
PROC: B2151ZZ Fluoroscopy of Left Heart using Low Osmolar Contrast (ICD-10-PCS; 2020-03-26)
PROC: 30233N1 Transfusion of Nonautologous Red Blood Cells into Peripheral Vein, Percutaneous Approach (ICD-10-PCS; 2020-03-26)
PROC: 30233N1 Transfusion of Nonautologous Red Blood Cells into Peripheral Vein, Percutaneous Approach (ICD-10-PCS; 2020-03-27)
PROC: 02100Z9 Bypass Coronary Artery, One Artery from Left Internal Mammary, Open Approach (ICD-10-PCS; 2020-03-27)
PROC: 021209W Bypass Coronary Artery, Three Arteries from Aorta with Autologous Venous Tissue, Open Approach (ICD-10-PCS; 2020-03-27)
PROC: 06BQ4ZZ Excision of Left Saphenous Vein, Percutaneous Endoscopic Approach (ICD-10-PCS; 2020-03-27)
PROC: 5A1D70Z Performance of Urinary Filtration, Intermittent, Less than 6 Hours Per Day (ICD-10-PCS; 2020-03-27)
PROC: 5A1D70Z Performance of Urinary Filtration, Intermittent, Less than 6 Hours Per Day (ICD-10-PCS; 2020-03-28)
PROC: 5A1D70Z Performance of Urinary Filtration, Intermittent, Less than 6 Hours Per Day (ICD-10-PCS; 2020-03-29)
PROC: 5A1D70Z Performance of Urinary Filtration, Intermittent, Less than 6 Hours Per Day (ICD-10-PCS; 2020-04-01)
DX: A41.51 Sepsis due to Escherichia coli [E. coli] (principal); I21.4 Non-ST elevation (NSTEMI) myocardial infarction; N18.6 End stage renal disease; I50.21 Acute systolic (congestive) heart failure; N39.0 Urinary tract infection, site not specified; I13.2 Hypertensive heart and chronic kidney disease with heart failure and with stage 5 chronic kidney disease, or end stage renal disease; I42.9 Cardiomyopathy, unspecified; T82.855A Stenosis of coronary artery stent, initial encounter; E87.1 Hypo-osmolality and hyponatremia; I25.10 Atherosclerotic heart disease of native coronary artery without angina pectoris; E11.22 Type 2 diabetes mellitus with diabetic chronic kidney disease; D50.9 Iron deficiency anemia, unspecified; E11.65 Type 2 diabetes mellitus with hyperglycemia; E78.5 Hyperlipidemia, unspecified; D63.8 Anemia in other chronic diseases classified elsewhere; Z20.828 Contact with and (suspected) exposure to other viral communicable diseases; B34.9 Viral infection, unspecified; D72.810 Lymphocytopenia; Y83.1 Surgical operation with implant of artificial internal device as the cause of abnormal reaction of the patient, or of later complication, without mention of misadventure at the time of the procedure; Z79.02 Long term (current) use of antithrombotics/antiplatelets; Z87.891 Personal history of nicotine dependence; Z86.73 Personal history of transient ischemic attack (TIA), and cerebral infarction without residual deficits; Z99.2 Dependence on renal dialysis; I25.2 Old myocardial infarction; Z79.82 Long term (current) use of aspirin; Z79.899 Other long term (current) drug therapy; Z82.49 Family history of ischemic heart disease and other diseases of the circulatory system
CPT/HCPCS: 36415; 36600; 71045; 71046; 80048; 80053; 80061; 80202; 80305; 81003; 82375; 82550; 82553; 82728; 82805; 82962; 83036; 83540; 83550; 83605; 83735; 83880; 84100; 84145; 84484; 85014; 85018; 85025; 85027; 85044; 86141; 86705; 86709; 86803; 86850; 86870; 86900; 86920; 87077; 87186; 87340; 87426; 87635; 93005; 93306; 93459; 93880; 93970; 94640; 97110; 97116; 97163; 97166; 97530; 97535; 99285; C1769; C1887; C1893; J0461; J0690; J0885; J1265; J1644; J1815; J1885; J1956; J2060; J2250; J2270; J2405; J2440; J2543; J2720; J3010; J3370; J3475; J3480; J3490; J7030; J7050; J7060; P9016; P9047; Q9967

== ENCOUNTER 2021-12-02 16:23 | Emergency (ER) | payer MEDICARE ==
[~2021-12-02] VITALS: Ht 160 cm; Wt 77.0 kg
[~2021-12-02 16:23] MED LIST: ASPI-1406 PO; ATOR80TA PO; CALC0.253 PO; CARV25TA47 PO; CLOP75TA15 PO; FURO40TA5 PO; HYDR-4134 PO; ISOS30TA91 PO; LOSA25TA26 PO
[2021-12-02 19:55] LABS: BASOPHILS % 0.8 % (0.0-2.0); EOSINOPHILS % 2.7 % (0.0-5.0); HEMATOCRIT. 34.7 % (42.0-52.0); HEMOGLOBIN. 11.6 g/dL (14.0-18.0); LYMPHOCYTES % 31.2 % (20.0-50.0); MEAN CORPUSCULAR VOLUME 98.6 fL (80.0-94.0); MEAN PLATELET VOLUME 9.2 fl (7.4-10.4); MONOCYTES % 11.4 % (2.0-8.0); NEUTROPHILS % 53.9 % (40.0-76.0); PLATELET 197 x1000/uL (130-400); RED BLOOD CELL COUNT 3.51 mill/uL (4.7-6.1); RED CELL DISTRIBUTION WIDTH 14.9 % (11.6-14.6)
[2021-12-02 19:59] LABS: PROTHROMBIN TIME 10.5 sec (9.6-11.0)
[2021-12-02 20:00] LABS: CHLORIDE 105 mEq/L (98-107)
[2021-12-03 00:26] VITALS: BP 159/76
== END 2021-12-03 00:48 | disposition short-term general hospital (02) ==
LOC: ER 16:23 → CANBEDREQ 12-03 01:59
DX: T82.898A Other specified complication of vascular prosthetic devices, implants and grafts, initial encounter (principal); Y92.89 Other specified places as the place of occurrence of the external cause; E11.22 Type 2 diabetes mellitus with diabetic chronic kidney disease; N18.6 End stage renal disease; Z99.2 Dependence on renal dialysis; I25.2 Old myocardial infarction; Z98.890 Other specified postprocedural states; I50.9 Heart failure, unspecified; I25.10 Atherosclerotic heart disease of native coronary artery without angina pectoris; Z79.899 Other long term (current) drug therapy; Z20.822 Contact with and (suspected) exposure to COVID-19
CPT/HCPCS: 36415; 80053; 85025; 85610; 87426; 99291; C9803

== ENCOUNTER 2022-11-18 12:41 | Emergency (ER) | payer MEDICARE ==
[~2022-11-18] VITALS: Ht 167.6 cm; Wt 76.0 kg
[2022-11-18 13:30] LABS: CHLORIDE 96 mEq/L (98-107)
[2022-11-18 14:37] LABS: BASOPHILS % 0.5 % (0.0-2.0); EOSINOPHILS % 0.3 % (0.0-5.0); HEMATOCRIT. 30.7 % (42.0-52.0); HEMOGLOBIN. 10.5 g/dL (14.0-18.0); LYMPHOCYTES % 10.4 % (20.0-50.0); MEAN CORPUSCULAR VOLUME 93.3 fL (80.0-94.0); MEAN PLATELET VOLUME 9.8 fl (7.4-10.4); MONOCYTES % 9.8 % (2.0-8.0); PLATELET 174 x1000/uL (130-400); RED BLOOD CELL COUNT 3.29 mill/uL (4.7-6.1); RED CELL DISTRIBUTION WIDTH 15.5 % (11.6-14.6)
[2022-11-18 16:43] LABS: CLARITY URINE CLEAR (CLEAR); COLOR URINE YELLOW (YELLOW); KETONES URINE NEGATIVE (NEGATIVE); LEUKOCYTE ESTERASE URINE 1+ (NEGATIVE); NITRITE URINE NEGATIVE (NEGATIVE); OCCULT BLOOD URINE NEGATIVE (NEGATIVE); PROTEIN URINE 3+ (NEGATIVE); SPECIFIC GRAVITY URINE 1.017 (1.005-1.030)
[2022-11-18 18:00] VITALS: BP 108/53
== END 2022-11-18 18:27 | disposition home or self-care (01) ==
LOC: ER 12:41
DX: E11.22 Type 2 diabetes mellitus with diabetic chronic kidney disease (principal); N18.6 End stage renal disease; I50.9 Heart failure, unspecified; I25.2 Old myocardial infarction; Z86.73 Personal history of transient ischemic attack (TIA), and cerebral infarction without residual deficits
CPT/HCPCS: 36415; 71045; 80053; 81003; 84484; 85025; 93005; 99285